=== PATIENT | male | born 1955 | race Caucasian/White ===

== ENCOUNTER 2019-11-01 08:02 | Day surgery (SDC) | payer BC ==
[2019-11-01] MEDS ORDERED: Lidocaine 1% PF 2 ML SDV INJECT ONE (08:03)
[2019-11-01] MEDS ORDERED: Propofol 200 MG/20 ML SDV IV ONE (08:03)
[2019-11-01] MEDS ORDERED: Lactated Ringers 1,000 ML IV SCH (08:30)
[2019-11-01] MEDS ORDERED: Sodium Chloride 0.9% 10 ML Syringe FLUSH PRN (08:30)
--- NOTE | 2019-11-01 10:26 | PCM.OPNOTE ---
- General Post-Op/Procedure Note Date of Surgery/Procedure: 11/01/19 Operative Procedure(s): c scope Findings: nl exam Pre Op Diagnosis: colon cancer screening Post-Op Diagnosis: Same Anesthesia Technique: MAC Primary Surgeon: Shahriar Trinidad Anesthesia Provider: Armin Judd Pathology: none Complications: None Condition: Good Free Text/Narrative:: see dictation
--- NOTE | 2019-11-01 13:32 | OR ---
DATE OF OPERATION: 11/01/2019 SURGEON: Shahriar Trinidad MD PROCEDURE PERFORMED: Colonoscopy. PREOPERATIVE DIAGNOSIS: Colon cancer screening. POSTOPERATIVE DIAGNOSIS: Colon cancer screening, normal exam. INDICATIONS FOR PROCEDURE: This 64-year-old white male presents for screening colonoscopy. He was offered and accepted the same. DESCRIPTION OF PROCEDURE: After an excellent IV sedation was administered, digital rectal exam was performed. No marked abnormality was noted. Flexible colonoscope was inserted and advanced to the cecum without difficulty. Prep was excellent. The following findings were noted. Ascending colon, unremarkable. Transverse colon, unremarkable. Descending colon, unremarkable. Sigmoid and rectum, unremarkable. Colon was deflated, scope was removed. The patient tolerated the procedure well. RECOMMENDATIONS: Repeat colonoscopy in 10 years. /[id number]/[id number]
== END 2019-11-01 11:16 | disposition home or self-care (01) ==
LOC: FB.SDS 08:02
PROVIDERS: ATTEND Surgery
DX: Z12.11 Encounter for screening for malignant neoplasm of colon (principal); K21.9 Gastro-esophageal reflux disease without esophagitis; J45.909 Unspecified asthma, uncomplicated; M19.049 Primary osteoarthritis, unspecified hand; Z79.82 Long term (current) use of aspirin; Z79.899 Other long term (current) drug therapy
CPT/HCPCS: J2001; J2704; J7120